=== PATIENT | female | born 1945 | race Caucasian/White ===

== ENCOUNTER → 2016-10-16 | Outpatient (CLI) | payer OTHER ==
[~2016-10-16] MED LIST: CLINORIL 2200 MG/TAB PO; DESYREL 100MG100 MG PO; FERROUS SU325 MG/TAB PO; INDERAL LA 60MG60 MG; LASIX 40MG TABL40 MG PO; MULTI VITAMINS1 TAB PO; NEURONTIN300 MG/CAP PO; PRAVACHOL 20MG20 MG PO; PRIL40 PO; PRINIVIL40 MG PO; SYNTHROID0.075 MG/T PO; VITAMIN C500 MG PO
== END ==
LOC: COL.RAD 08:47
DX: M25.511 Pain in right shoulder (principal); R93.7 Abnormal findings on diagnostic imaging of other parts of musculoskeletal system
CPT/HCPCS: J3301; Q9967

== ENCOUNTER → 2017-02-28 | Outpatient (REF) ==
[2017-02-28 09:26] LABS: THYROID STIMULATING HORMONE 1.73 uIU/mL (0.465-4.680)
[2017-02-28 10:36] LABS: TOTAL IRON BINDING CAPACITY 254 ug/dL (265-497)
== END ==
LOC: ZLAB.WCH 08:42
PROVIDERS: Internal Medicine
DX: Z01.89 Encounter for other specified special examinations (principal)

== ENCOUNTER → 2017-05-10 | Outpatient (REF) | LOC: ZLAB.WCH 14:18 | DX: Z01.89 Encounter for other specified special examinations (principal) ==

== ENCOUNTER → 2017-09-14 | Outpatient (REF) ==
[2017-09-14 18:26] LABS: IRON,SERUM 101 ug/dL (35-150)
[2017-09-14 18:36] LABS: TOTAL IRON BINDING CAPACITY 221 ug/dL (265-497)
[2017-09-14 19:03] LABS: FERRITIN 407 ng/mL (11-264)
== END ==
LOC: ZLAB.WCH 18:05
PROVIDERS: Internal Medicine
DX: Z01.89 Encounter for other specified special examinations (principal)

== ENCOUNTER → 2017-11-09 | Outpatient (REF) ==
[2017-11-09 18:42] LABS: THYROID STIMULATING HORMONE 5.09 uIU/mL (0.465-4.680)
== END ==
LOC: ZLAB.WCH 17:51
PROVIDERS: Internal Medicine
DX: Z01.89 Encounter for other specified special examinations (principal)

== ENCOUNTER → 2018-01-03 | Outpatient (REF) | LOC: ZLAB.WCH 17:47 | DX: Z01.89 Encounter for other specified special examinations (principal) ==

== ENCOUNTER 2019-09-24 07:33 | Day surgery (SDC) | payer MEDICARE, MEDICAID ==
[~2019-09-24] VITALS: Ht 165.1 cm; Wt 118.2 kg
[2019-09-24] MEDS ORDERED: SYNTHROID0.1 MG/TAB PO (08:15)
[2019-09-24] MEDS ORDERED: KLONOPIN 1MG1 MG PO (08:19)
[2019-09-24] MEDS ORDERED: CYMBALTA 30MG30 MG PO (08:20)
[2019-09-24] MEDS ORDERED: TRANDATE 100MG100 MG PO (08:20)
[2019-09-24] MEDS ORDERED: LINZESS290CAP PO (08:21)
[2019-09-24] MEDS ORDERED: MS CONTIN 115 MG/TAB PO (08:22)
[2019-09-24] MEDS ORDERED: MS CONTIN 660 MG/TAB PO (08:22)
[2019-09-24] MEDS ORDERED: NORCO 325 MG-51 TAB PO (08:22)
[2019-09-24] MEDS ORDERED: CLINORIL 1150 MG/TAB PO (08:23)
[2019-09-24] MEDS ORDERED: OMNICEF 300MG300 MG PO (08:24)
[2019-09-24] MEDS ORDERED: DULCOLAX TAB5 MG PO (08:24)
[2019-09-24] MEDS ORDERED: TYLENOL 325MG325 MG PO (08:25)
[2019-09-24] MEDS ORDERED: TUMS500 MG PO (08:25)
[2019-09-24 08:37] VITALS: BP 155/74; PULSE 64; TEMP 98
[2019-09-24 11:19] VITALS: BP 145/71; PULSE 67; TEMP 97.9
--- NOTE | 2019-09-24 11:19 | NUR ---
The patient arrived back to [facility] from the operating room at this time. The patient appears alert and oriented and denies any pain or nausea at this time. The patient's post operative vital signs were started at this time. The patient agrees to try some apple juice and ice water at this time. Kar Coffey is at the patient's bedside reviewing the controls for the device with the patient. Call light is within reach. Will continue to monitor the patient.
[2019-09-24 11:34] VITALS: BP 111/48; PULSE 66
--- NOTE | 2019-09-24 11:34 | NUR ---
The patient appeared to tolerate the juice well and requests to try some toast at this time. The patient's was brought back to be at her bedside. Vital signs appear stable. Will continue to monitor the patient.
[2019-09-24 11:49] VITALS: BP 120/59; PULSE 65
--- NOTE | 2019-09-24 11:49 | NUR ---
The patient appears to be tolerating the toast well at this time. The patient's remains at her bedside. Will continue to monitor the patient.
[2019-09-24 12:04] VITALS: BP 120/73; PULSE 75
--- NOTE | 2019-09-24 12:04 | NUR ---
Discharge instructions were reviewed with the patient and her at this time. They verbalized understanding and have no questions for the nurse at this time. The patient's IV to her left hand was removed and a pressure dressing was applied to the site. The patient's is going to go get to the car while the nurse assists the patient to get dressed.
--- NOTE | 2019-09-24 12:20 | NUR ---
The patient is dressed and ready to be escorted out. The patient was escorted out via wheelchair to a private vehicle by TASHA June. The patient's belongings and discharge paperwork were sent with her. The patient's is present to drive her home.
--- NOTE | 2019-09-24 12:51 | NUR ---
Initial visit; Patient requested visit from Transfer Coordinator prior to surgical procedure and thanked Transfer Coordinator for offering prayer and encouragement.
== END 2019-09-24 12:20 | disposition home or self-care (01) ==
LOC: SDCO 07:33
DX: N39.46 Mixed incontinence (principal); R35.1 Nocturia; R35.0 Frequency of micturition; I10 Essential (primary) hypertension; K21.9 Gastro-esophageal reflux disease without esophagitis; M79.7 Fibromyalgia; G89.29 Other chronic pain; M54.9 Dorsalgia, unspecified; N39.0 Urinary tract infection, site not specified; E78.5 Hyperlipidemia, unspecified; E03.9 Hypothyroidism, unspecified; D50.9 Iron deficiency anemia, unspecified; N30.20 Other chronic cystitis without hematuria; E66.9 Obesity, unspecified; Z86.73 Personal history of transient ischemic attack (TIA), and cerebral infarction without residual deficits; Z79.899 Other long term (current) drug therapy
CPT/HCPCS: C1767; C1778; C1787; C1894; J0330; J1100; J2250; J2405; J2704; J7120